=== PATIENT | female | born 1995 | race Caucasian/White ===

== ENCOUNTER → 2018-01-16 09:41 | Outpatient (CLI) | payer OTHER, SELFPAY ==
--- NOTE | 2018-01-16 | DI.RAD.S_ITS ---
PROCEDURE: XR ABDOMEN 3V INDICATIONS: abdominal pain TECHNIQUE: One view chest and two views of the abdomen were acquired. COMPARISON: None. FINDINGS: Surgical changes and devices: None. Chest: Lungs are clear. Heart size is normal. No pleural effusions. No pneumoperitoneum. Abdomen: Bowel gas pattern is abnormal with generalized colonic obstipation bilaterally involving both the abdomen and pelvis. No suspicious calcifications. Visualized solid organ contours appear normal. Bones: No suspicious bony lesions. IMPRESSION: Generalize colonic obstipation through the abdomen and pelvis. Dictated by: Corey Ramos M.D. on 01/16/2018 at 11:07 Approved by: Corey Ramos M.D. on 01/16/2018 at 11:08
== END ==
PROVIDERS: Family Provider Family Medicine; PCP Family Medicine; Visit Provider Family Medicine
DX: R10.9 Unspecified abdominal pain (principal); K59.00 Constipation, unspecified
CPT/HCPCS: 74021